=== PATIENT | male | born 1965 | race Caucasian/White ===

== ENCOUNTER 2016-10-03 16:31 | Emergency (ER) | payer MEDICAID ==
[~2016-10-03] VITALS: Ht 177.8 cm; Wt 78.6 kg
[2016-10-03] MEDS ORDERED: PLEASE ENTER ALLERGIES MC SCH ×2 (17:30)
[2016-10-03] MEDS ORDERED: KETOROLAC 30 MG/1 ML IM ONE (17:30)
[2016-10-03 17:51] LABS: ASPARTATE AMINO TRANSFERASE 41 U/L (15-37); BLOOD UREA NITROGEN 12 mg/dL (7-18)
[2016-10-03] MEDS ORDERED: INSU100C SQ-INSULIN (19:06)
[2016-10-03] MEDS ORDERED: KETOROLAC 30 MG/1 ML ONE (20:09)
[2016-10-03 20:45] VITALS: BP 124/76
== END 2016-10-03 20:48 | disposition home or self-care (01) ==
LOC: ED 20:45
DX: G44.229 Chronic tension-type headache, not intractable (principal); E11.9 Type 2 diabetes mellitus without complications
CPT/HCPCS: 36415; 80053; 83690; 85025; 96372; 99284; J1885